=== PATIENT | male | born 1975 | race Caucasian/White ===

== ENCOUNTER 2025-04-15 16:56 | Emergency (ER) | payer SELFPAY ==
[~2025-04-15] VITALS: Ht 185.4 cm; Wt 104.6 kg
[2025-04-15 17:09] VITALS: PULSE 69; RESP 18; TEMP 98.3; O2SAT 96
[2025-04-15] MEDS ORDERED: OFLOXACIN5 M1 OP (17:20)
== END 2025-04-15 17:27 | disposition home or self-care (01) ==
LOC: FSED 17:10
DX: H10.9 Unspecified conjunctivitis (principal)
CPT/HCPCS: 99283